=== PATIENT | female | born 1995 | race Caucasian/White ===

== ENCOUNTER 2018-10-16 17:43 | Inpatient (IN) | payer MEDICAID ==
[~2018-10-16] VITALS: Ht 162.6 cm; Wt 111.7 kg
[2018-10-16 17:53] VITALS: Ht 162.6 cm; Wt 111.7 kg
[2018-10-16 17:54] VITALS: BP 130/67; PULSE 81; RESP 20
[2018-10-16] MEDS ORDERED: LACTATED RINGER'S 1,000 ML IV PRN (18:27)
[2018-10-16] MEDS ORDERED: LIDOCAINE 1% (MPF) 30 ML INJ INJ PRN (18:30)
[2018-10-16] MEDS ORDERED: METHYLERGONOVINE 0.2 MG INJ IM PRN (18:30)
[2018-10-16] MEDS ORDERED: IBUPROFEN 600 MG TAB PO PRN (18:30)
[2018-10-16] MEDS ORDERED: OXYTOCIN 30 UNITS/LR 500 ML IV SCH ×2 (18:30)
[2018-10-16] MEDS ORDERED: MISOPROSTOL 200 MCG TAB PR PRN (18:30)
[2018-10-16] MEDS ORDERED: OXYTOCIN 30 UNITS/LR 500 ML IV PRN (18:30)
[2018-10-16] MEDS ORDERED: BUTORPHANOL 2 MG INJ IV PRN ×2 (18:30)
[2018-10-16] MEDS ORDERED: CARBOPROST 250 MCG INJ IM PRN (18:30)
--- NOTE | 2018-10-16 18:36 | TRIAGE ---
OB Triage Datetime Report Generated by CPN: 10/16/2018 18:35 Datetime: 10/16/2018 18:34 EGA: 38.0 Datetime: 10/16/2018 18:31 Time of Arrival: 10/16/2018 17:34 Arrived By: Ambulatory Arrived From: Home Chief Complaint: leaking, bleeding, uc's Movement: Present Contractions: Regular Time Contractions Began: 10/16/2018 15:00 Contractions: 5-7 Rupture of Membranes: Unsure Vaginal Discharge: Present Recent Sexual Intercouse: Denies Abdominal Trauma: Not Applicable Patient Complaints: Contractions Additional Patient Complaints: burning w urination, hx of ptl w last Time Provider Notified: 10/16/2018 17:59 Provider Notified: lizbet Initial Plan: rom +, ua
[2018-10-16] MEDS: LACTATED RINGER'S 1,000 ML IV SCH ×2 (19:18→20:34)
--- NOTE | 2018-10-16 19:19 | HP ---
Date/Time of Note Date/Time of Note DATE: 10/16/18 TIME: 19:10 OB - History Hx of Present Free Text/Dictation 23 y.0 who has Hx of PTB at 21week with one pound here at 37w5d in active labor with ? of ROM leaking fluid nitrazine neg VE 5/100/-1 c/o burning on urination, c/o leaking and vaginal bleeding Her wasinitiated on ist trimester , received mariel weekly last dose was given 4days ago GBS neg admitted for expectant management. Chief Complaint: leaking fluid and vagianl bleeding burning on urination Estimated Due Date: October 30, 2018 : 2 Para: 1 Spontaneous : 0 Therapeutic : 0 Care: Good Care Obstetrical Complications: None Medical Complications: None Past Family/Social History * Past Medical, Surgical, Family and Obstetric Histories reviewed from chart. Blood Type: O+ Rubella: immune RPR/VDRL: Negative GBS Status: Negative HBsAG: Negative OB Admission Exam Vital Signs Vital Signs Vital Signs Date Temp Pulse Resp B/P (MAP) Pulse Ox O2 O2 Flow FiO2 Time Delivery Rate 10/16/18 98.5 81 20 130/67 Room Air 17:54 (88) Physical Exam HEENT: WNL Heart: Rhythm Normal Lungs: Clear, Equal Abdomen: WNL Extremities: Normal Reflexes: Normal Cervical Dilatation: 5cm Effacement: 100% Station: -1 Membranes: Ruptured Amniotic Fluid: Clear Heart Rate: 150's Accelerations: Accelerations Present Decelerations: No Decelerations Varibility: Moderate Contractions on Admission: < 5 Minutes Apart Intensity: Moderate OB Assessment/Plan Reason for admission: active labor Other Assessment: IUP 37w5d Plan: Expectant Management HI NASCIMENTO MD October 16, 2018 19:19
--- NOTE | 2018-10-16 20:35 | PREAC ---
Date/Time of Note Date/Time of Note DATE: 10/16/18 TIME: 20:34 Anesthesia Eval and Record Evaluation Time Pre-Procedure Interview DATE: 10/16/18 TIME: 20:34 Age 23 Sex female NPO: 8 hrs Preoperative diagnosis intrauterine Planned procedure labor epidural Past Medical History Past Medical History: Includes GI: Obesity : : (2), Para: (1) Surgery & Anesthesia Issues No known issue Meds Anticoagulation: No Beta Magda within 24 hr: No Reason Beta Magda not given: Pt. not on B-Magda Current Medications Lactated Ringer's 1,000 ml @ 125 mls/hr Q8H IV Last administered on 10/16/18at 19:18; Admin Dose 125 MLS/HR; Start 10/16/18 at 18:27 Butorphanol Tartrate (Stadol) 1 mg Q2H PRN IV .PAIN SCALE 1-5; Start 10/16/18 at 18:30 Butorphanol Tartrate (Stadol) 2 mg Q2H PRN IV .PAIN SCALE 6-10; Start 10/16/18 at 18:30 Lidocaine (Xylocaine 1% (Mpf)) 30 ml ONCE PRN INJ .EPISIOTOMY; Start 10/16/18 at 18:30 Oxytocin/Lactated Ringer's 500 ml @ 500 mls/hr ONCE POST IV ; Start 10/16/18 at 18:30 Oxytocin/Lactated Ringer's 500 ml @ 125 mls/hr POST IV ; Start 10/16/18 at 18:30 Ibuprofen (Motrin) 600 mg ONCE PRN PO .PAIN 1-5; Start 10/16/18 at 18:30 Lactated Ringer's 1,000 ml @ 2,000 mls/hr Q30M PRN IV .ANESTHESIA; Start 10/16/18 at 18:27 Oxytocin/Lactated Ringer's 500 ml @ 0 mls/hr ONCE PRN IV .VAGINAL BLEEDING; Start 10/16/18 at 18:30 Methylergonovine Maleate (Methergine) 0.2 mg ONCE PRN IM .VAGINAL BLEEDING; Start 10/16/18 at 18:30 Carboprost Tromethamine (Hemabate) 250 mcg ONCE PRN IM .VAGINAL BLEEDING; Start 10/16/18 at 18:30 Misoprostol (Cytotec) 1,000 mcg ONCE PRN GA .VAGINAL BLEEDING; Start 10/16/18 at 18:30 Cefazolin Sodium/ Dextrose 50 ml @ 100 mls/hr Q8H IVPB ; Start 10/16/18 at 20:30 Meds reviewed: Yes Allergies Coded Allergies: No Known Allergy (Unverified , 10/16/18) Allergies Reviewed: Yes Labs/Studies Labs Reviewed: Reviewed by anesthesiologist Result Diagram: 10/16/18 1800 Laboratory Tests 10/16/18 18:00 Blood Bank Test 10/16/18 18:00 Antibody Screen NEGATIVE Blood Type A POSITIVE Rh Immune Globulin Candidate NO test: N/A Pre-procedure Exam Last vitals Vital Signs Date Temp Pulse Resp B/P (MAP) Pulse Ox O2 O2 Flow FiO2 Time Delivery Rate 10/16/18 98.5 81 20 130/67 Room Air 17:54 (88) Airway: Adequate mouth opening, Adequate thyromental dist Mallampati: Mallampati II Teeth: Normal Lung: Normal Heart: Normal ASA Physical Status ASA physical status: 2 Emergency: None Planned Anesthetic Neuraxial: Epidural Planned Pain Management Epidural, Parenteral pain med Pre-operative Attestations Prior to commencing anesthesia and surgery, the patient was re-evaluated, there was verification of: *The patient's identity *The results of appropriate recent lab work and preoperative vital signs *The above evaluation not changing prior to induction *Anesthetic plan, risk benefits, alternative and complications discussed with patient/family; questions answered; patient/family understands, accepts and wishes to proceed. ALIA REBOLLAR MD October 16, 2018 20:35
[2018-10-16] MEDS: CEFAZOLIN 2 GM/50 ML (PMX) 50 ML IVPB SCH (20:40)
[2018-10-16] MEDS ORDERED: NALOXONE (0.4 MG/ML) INJ IV PRN (21:00)
[2018-10-16] MEDS ORDERED: FENTAnyl 2MCG/ML-ROPIV 0.2% 100 ML BAG EPI SCH (21:00)
[2018-10-16] MEDS ORDERED: ONDANSETRON 4 MG INJ IV PRN (21:00)
[2018-10-16] MEDS ORDERED: DIPHENHYDRAMINE 50 MG INJ IV PRN (21:00)
--- NOTE | 2018-10-16 21:34 | PAC ---
Date/Time of Note Date/Time of Note DATE: 10/16/18 TIME: 21:33 Post-Anesthesia Notes Post-Anesthesia Note Last documented vital signs Vital Signs Date Temp Pulse Resp B/P (MAP) Pulse Ox O2 O2 Flow FiO2 Time Delivery Rate 10/16/18 98.5 81 20 130/67 Room Air 17:54 (88) Activity: WNL Respiratory function: WNL Cardiovascular function: WNL Mental status: Baseline Pain reasonably controlled: Yes Hydration appropriate: Yes Nausea/Vomiting absent: Yes Comments BP: 118/65 HR: 99 RR: 17 T: 98 SaO2: 99% ALIA REBOLLAR MD October 16, 2018 21:34
[2018-10-17] MEDS ORDERED: ACETAMINOPHEN 325 MG TAB PO ONE
[2018-10-17] MEDS ORDERED: OXYTOCIN 30 UNITS/LR 500 ML IV SCH ×2 (03:00→12:08)
[2018-10-17] MEDS: CEFAZOLIN 2 GM/50 ML (PMX) 50 ML IVPB SCH (04:29)
[2018-10-17] MEDS: LACTATED RINGER'S 1,000 ML IV SCH (06:37)
--- NOTE | 2018-10-17 09:41 | LDN ---
Date/Time of Note Date/Time of Note DATE: 10/17/18 TIME: 09:40 Delivery Summary Weeks of Gestation 40 Placenta Delivered: Spontaneously Meconium: none Episiotomy: No Laceration repair: 1st degree vaginal laceration repair with 3-0 chromic Anesthesia type: Epidural Estimated blood loss: 300 Sponge & Needle done & correct: Yes All needle counts correct: Yes Any foreign bodies felt in the: No Infant Delivery Information Sex Infant Sex: male Apgars 1 Minute: 9 5 Minute: 9 Suctioning Nose & mouth suctioned at cl: No Delee suction performed: No Umbilical Cord Umbilical cord with: 3 Vessels Cord presentations: no nuchal cord Cord Blood was obtained: Yes JAVIER DE LEÓN MD October 17, 2018 09:41
[2018-10-17 12:04] VITALS: BP 121/51; PULSE 67; RESP 20
[2018-10-17] MEDS ORDERED: OXYTOCIN 30 UNITS/LR 500 ML IV PRN (12:30)
[2018-10-17] MEDS ORDERED: WITCH HAZEL/GLYCERIN PAD PR PRN (12:30)
[2018-10-17] MEDS ORDERED: DIPHENHYDRAMINE 25 MG CAP PO PRN (12:30)
[2018-10-17] MEDS ORDERED: MISOPROSTOL 200 MCG TAB PR PRN (12:30)
[2018-10-17] MEDS ORDERED: OXYCODONE/ASPIRIN (4.88/325) TAB PO PRN ×2 (12:30)
[2018-10-17] MEDS ORDERED: BENZOCAINE 20% 56 ML SPRAY TOP PRN (12:30)
[2018-10-17] MEDS ORDERED: NACL 0.9% 3 ML SYG IV SCH (12:30)
[2018-10-17] MEDS ORDERED: METHYLERGONOVINE 0.2 MG INJ IM PRN (12:30)
[2018-10-17] MEDS ORDERED: LANOLIN HPA 1 PKT TOP PRN (12:30)
[2018-10-17] MEDS ORDERED: CARBOPROST 250 MCG INJ IM PRN (12:30)
[2018-10-17] MEDS ORDERED: ONDANSETRON 4 MG INJ IV PRN (12:30)
[2018-10-17 16:23] VITALS: BP 119/68; PULSE 76; RESP 18
[2018-10-17] MEDS: IBUPROFEN 600 MG TAB PO SCH (17:42)
[2018-10-17 20:00] VITALS: BP 104/55; PULSE 92; RESP 18
[2018-10-17] MEDS: SENNA/DOCUSATE NA (8.6MG/50MG) TAB PO SCH (20:16)
[2018-10-18] MEDS: IBUPROFEN 600 MG TAB PO SCH ×4 (01:24→17:57)
[2018-10-18 04:00] VITALS: BP 118/64; PULSE 71; RESP 18
[2018-10-18 08:00] VITALS: BP 107/71; PULSE 80; RESP 20
[2018-10-18] MEDS: SENNA/DOCUSATE NA (8.6MG/50MG) TAB PO SCH ×2 (09:42→20:37)
[2018-10-18 16:00] VITALS: BP 108/58; PULSE 85; RESP 16
--- NOTE | 2018-10-18 18:05 | PD.PPDC ---
PIECE MARKER SMALL ARMS Discharge Instruction Condition Buaft6Ke Patient Condition: Rqqey2x Good Diet Alvvq6Qs Diet: Mvytp3n Resume Regular Diet Activity/Restrictions [id number] Activity: Veobv2p Normal Activity May Shower Mziyo2Zf Restrictions: Lwtrh2m No Exercising No Lifting No Driving No Sexual Activity Nothing in the Vagina No [place] No Tampons, douche Follow-up Follow-up with Physician: 3, Week/Weeks Return to clinic for Nzqqu5Nc INCINERATOR ATTENDANT Instructions: Pwoyo3s Fever greater than 101 Chills Worsening abdominal pain Excessive Vaginal Bleeding More than 2 pads per hour Unable to tolerate diet Htpdp5Eb OB Instructions: Mmmqq7v Breast Tenderness Depression Blurried Vision Headache [id number] Surgical Instructions: Heyoq9e Incisional Drainage Incisional Redness JAVIER DE LEÓN MD October 18, 2018 18:05
--- NOTE | 2018-10-18 18:07 | DS ---
Date/Time of Note Date/Time of Note DATE: 10/18/18 TIME: 18:06 Obstetrical Discharge Record Final Diagnosis Final Diagnosis: Term delivered Vaginal Delivery Obstetrical Delivery: Spontaneous, Laceration, Repaired Condition on Discharge Physical Assessment Last Vitals: stable afebrile Voiding: Yes Bowel Movement: Yes Breast: Soft, non-tender, Filling Fundus: Firm Abdomen and Incision: soft nt Calf Tenderness: No Patient Condition: Fair JAVIER DE LEÓN MD October 18, 2018 18:07
[2018-10-18 20:25] VITALS: BP 103/49; PULSE 71; RESP 16
[2018-10-19] MEDS: IBUPROFEN 600 MG TAB PO SCH ×3 (00:25→12:38)
[2018-10-19 04:00] VITALS: BP 101/53; PULSE 78; RESP 17
[2018-10-19 08:10] VITALS: BP 115/68; PULSE 70; RESP 17
[2018-10-19] MEDS ORDERED: MEASLES,MUMPS,RUBELLA VACCINE INJ SC* ONE (09:00)
[2018-10-19] MEDS: SENNA/DOCUSATE NA (8.6MG/50MG) TAB PO SCH (09:01)
--- NOTE | 2018-10-20 14:35 | DELSUM ---
Delivery Summary A-C Datetime Report Generated by CPN: 10/20/2018 14:35 DELIVERY PERSONNEL Handbag Operator: Ben Hopkins MATERNAL INFORMATION Delivery Anesthesia: Epidural Medications in Delivery: PITOCIN Delivery QBL (ml): 300 Placenta Cultured: No Maternal Complications: None LABOR SUMMARY EDC: 10/30/2018 00:00 No. Babies in Womb: 1 Attempted: No Labor Anesthesia: Epidural LABOR INFORMATION Reason for Induction: Not Applicable Onset of Labor: 10/16/2018 19:00 Complete Dilatation: 10/17/2018 08:45 Oxytocin: Augmentation Group B Beta Strep: Negative Antibiotics # of Doses: 2 Antibiotics Time of Last Dose: 10/17/2018 04:29 Steroids Given: None Reason Steroids Not Administered: Not Applicable MEMBRANES Membranes Rupture Method: Artificial Rupture of Membranes: 10/17/2018 08:44 Length of Rupture (hr): 0.53 Amniotic Fluid Color: Clear Amniotic Fluid Amount: Moderate Amniotic Fluid Odor: None STAGES OF LABOR Stage 1 hr: 13 Stage 1 min: 45 Stage 2 hr: 0 Stage 2 min: 31 Stage 3 hr: 0 Stage 3 min: 2 Total Time in Labor hr: 14 Total Time in Labor min: 18 VAGINAL DELIVERY Episiotomy: None Laceration Extension: First Degree Laceration Type: Perineal Laceration Repair: Yes Initial Vag Sponge Count: 10+10 Final Vag Sponge Count: 20 Initial Vag Sharps Count: 1+2 Final Vag Sharps Count: 3 Sponge Count Correct: Yes; Vaginal Sweep Performed BABY A INFORMATION Infant Delivery Date/Time: 10/17/2018 09:16 Method of Delivery: Vaginal Born in Route : No : N/A Forceps: N/A Vacuum Extraction: N/A Shoulder Dystocia : N/A SHOULDER DYSTOCIA BABY A Infant Delivery Date/Time: 10/17/2018 09:16 PRESENTATION/POSITION BABY A Presentation: Cephalic Cephalic Presentation: Vertex Vertex Position: Left Occipital Anterior Breech Presentation: N/A PLACENTA INFORMATION BABY A Placenta Delivery Time : 10/17/2018 09:18 Placenta Method of Delivery: Spontaneous Placenta Status: Delivered SCORES BABY A Heart Rate 1 min: >100 bpm Resp Effort 1 min: Good Cry Reflex Irritability 1 min: Cough/Sneeze/Pulls Away Muscle Tone 1 min: Active Motion Color 1 min: Body [place], Extremit Blue Resuscitation Effort 1 min: Tactile Stimulation SCORE 1 MIN: 9 Heart Rate 5 min: >100 bpm Resp Effort 5 min: Good Cry Reflex Irritability 5 min: Cough/Sneeze/Pulls Away Muscle Tone 5 min: Active Motion Color 5 min: Body [place], Extremit Blue Resuscitation Effort 5 min: Tactile Stimulation SCORE 5 MIN: 9 INFANT INFORMATION BABY A Gestational Age at Delivery: 38.1 Gestational Status: Early Term- 37- 38.6 Weeks Outcome : Liveborn Infant Condition : Stable Infant Sex: Male IDENTIFICATION/MEDS BABY A ID Band Number: [id number] ID Band Location: Right Leg; Left Arm Sensor Applied: Yes Sensor Number: [id number] Sensor Location : Cord Clamp Vitamin K Given : Not Given Erythromycin Given: Not Given WEIGHT/LENGTH BABY A Birthweight (gm): 3290 Infant Weight (lb): 7 Weight (oz): 4 Infant Length (in): 20.50 Infant Length (cm): 52.07 CORD INFORMATION BABY A No. Cord Vessels: 3 Nuchal Cord : N/A Cord Blood Taken: Yes Infant Suction: Nose ASSESSMENT BABY A Complications: None Physical Findings at Delivery: Within Normal Limits Infant Respirations: Appears Normal Long Wall Mining Machine Tender/ALS Called : Yes Care By: RT ARGENIS/BEN RN Transferred To: Remains with Mother
== END 2018-10-19 13:40 | disposition home or self-care (01) | DRG 807 ==
LOC: OBT 17:43 → L-D 17:44 → OBT 18:30 → PP1 10-17 11:53
PROVIDERS: ADMIT Obstetrics & Gynecology; ATTEND Obstetrics & Gynecology
PROC: 10E0XZZ Delivery of Products of Conception, External Approach (ICD-10-PCS; principal; 2018-10-17)
PROC: 0HQ9XZZ Repair Perineum Skin, External Approach (ICD-10-PCS; 2018-10-17)
DX: O70.0 First degree perineal laceration during delivery (principal); Z37.0 Single live birth; Z3A.37 37 weeks gestation of pregnancy
CPT/HCPCS: 62322; 76815; 76818; 81001; 84112; 85025; 85048; 85610; 85730; 86592; 86850; 86900; 86901; 87340; 99464; G0463; J0690; J2210; J2590; J3010; J7120

== ENCOUNTER 2018-11-14 16:09 | Emergency (ER) | payer MEDICAID ==
[~2018-11-14] VITALS: Ht 165.1 cm; Wt 103.6 kg
[2018-11-14 16:22] VITALS: Ht 165.1 cm; Wt 103.6 kg
[2018-11-14] MEDS ORDERED: METR500T PO (20:04)
[2018-11-14 20:21] VITALS: BP 101/50; PULSE 53; RESP 18
--- NOTE | 2018-11-14 21:31 | ERD ---
ER Documentation Chief Complaint Chief Complaint painful urination & vaginal bleeding vag delivery 28 days ago HPI History of Present Illness: 23-year-old female who denies a past medical history coming in today due to painful urination and malodorous vaginal bleeding that started 1 week ago. Patient reports using approximately 5 pads per day. Patient had a vaginal delivery on 10/17/2018 in which she experienced no complications but did have a tear that required sutures. Patient denies any other associated symptoms. Patient denies burning with urination, frequency, urgency. Patient denies fever, chills. Patient present with significant other as well as infant child. At home pharmacological/nonpharmacological treatment for symptoms: Denies Denies social concerns; Denies recent foreign travel ROS All systems reviewed and are negative except as per history of present illness. Medications Home Meds Active Scripts Metronidazole* (Flagyl*) 500 Mg Tablet, 500 MG PO BID for BACTERIAL VAGINOSIS/VAG INFECT for 7 Days, TAB Prov:DALE TERRAZAS V ENGINEERING TECHNICAL SPECIALIST 11/14/18 Allergies Allergies: Coded Allergies: No Known Allergy (Unverified , 10/16/18) PMhx/Soc History of Surgery: No Anesthesia Reaction: No Hx Neurological Disorder: No Hx Respiratory Disorders: No Hx Cardiac Disorders: No Hx Psychiatric Problems: No Hx Miscellaneous Medical Probl: No Hx Alcohol Use: No Hx Substance Use: No Hx Tobacco Use: No Smoking Status: Never smoker FmHx Family History: No diabetes, No coronary disease Physical Exam Vitals Vital Signs Date Temp Pulse Resp B/P (MAP) Pulse Ox O2 O2 Flow FiO2 Time Delivery Rate 11/14/18 98.1 53 18 101/50 98 20:21 (67) 11/14/18 98.6 67 18 119/60 98 16:22 (79) Physical Exam Const: No acute distress Head: Atraumatic Eyes: Normal Conjunctiva ENT: Normal External Ears, Nose and Mouth. Neck: Full range of motion. No meningismus. Resp: Clear to auscultation bilaterally Cardio: Regular rate and rhythm, no murmurs Abd: Soft, non tender, non distended. Normal bowel sounds. Obese. Skin: No petechiae or rashes Back: No midline or flank tenderness Ext: No cyanosis, or edema Neur: Awake and alert Psych: Normal Mood and Affect My vaginal exam: External genitalia within normal limits, no severe hemorrhaging noted. Speculum exam deferred due to patient having recent vaginal delivery less than 4 weeks ago. Wet prep collected. Results 24 hrs Laboratory Tests Test 11/14/18 18:10 Urine Color STRAW Urine Clarity CLEAR Urine pH 5.0 Urine Specific [place] 1.009 Urine Ketones NEGATIVE mg/dL Urine Nitrite NEGATIVE mg/dL Urine Bilirubin NEGATIVE mg/dL Urine Urobilinogen NEGATIVE mg/dL Urine Leukocyte Esterase NEGATIVE Kkio/ul Urine Microscopic RBC 0 /HPF Urine Microscopic WBC 0 /HPF Urine Hemoglobin 2+ mg/dL Urine Glucose NEGATIVE mg/dL Urine Total Protein NEGATIVE mg/dl Procedures/MDM ED course includes a thorough examination and history. Medications: Imaging: No ultrasound at this time, discussed with ED Dr. Barroso arriving in and agrees with plan of care to defer ultrasound Labs: Urinalysis, wet prep Low suspicion for life-threatening medical emergency. Low suspicion for IMPLEMENTATION ARCHITECT emergency requires hospitalization or immediate surgical intervention. Otherwise healthy patient presenting with constellation of symptoms likely representing vaginal bleeding after vaginal delivery, bacterial vaginosis as characterized by history, physical exam findings, lab findings. Urogenital wet mount showing RBCs, WBCs, positive clue cells, positive bacteria. Patient reassessment 180: Patient hemodynamically stable. No respiratory distress, otherwise relatively well appearing and nontoxic. Disposition given. Patient educated on diagnoses, prescriptions, follow-up care, return precautions. Strict return precautions given for worsening condition; questions answered discharge. Patient verbalizes understanding of discharge instructions as well as plan of care, follow-up, return precautions. Disposition for discharge with followup in 2 days with PCP/clinic. Departure Diagnosis: Primary Impression: Bacterial vaginosis Additional Impression: Vaginal bleeding Condition: Stable Patient Instructions: Vaginal : Your Experience, Vaginal Infection: Bacterial Vaginosis Ref[facility]: [facility] Usted se olsen hecho un examen mdico de control que le indica que no est en maurilio condicin que requiera tratamiento urgente en el Departamento de Emergencia. Un estudio ms profundo y el tratamiento de [place] condicin pueden esperar sin ningn riesgo hasta que usted sea atendida/o en el consultorio de [place]by mdico o maurilio clnica. Es responsabilidad suya arreglar maurilio yeimy para el seguimiento del noel. MANEJO DE CONDICIONES NO URGENTES EN EL FUTURO 1) Si usted tiene un mdico de atencin primaria: Usted debera llamar a [place] mdico de atencin primaria antes de venir al departamento de emergencia. Despus de las horas de consultorio, [place]by doctor o [place]oughby asociado/a est disponible por telfono. El mdico o enfermero de jc en el servicio telefnico puede asesorarle por sravani medio para atender el problema, o noel contrario se puede programar maurilio yeimy. 2) Si usted no tiene un mdico de atencin primaria: Llame al mdico o clnica de referencia que aparece abajo alfredo las horas de consultorio para hacer maurilio yeimy para que le vean. CLINICAS: [facility] [phone] [address] [place] [place] [facility] [facility] [phone] [address] [facility]. [facility] [phone] [address] [facility]. [facility] [phone] [address] [facility]. [facility] [phone] [address] [facility]. [phone] [facility] [facility]. [facility] () Usted se olsen hecho un examen mdico de control que le indica que no est en maurilio condicin que requiera tratamiento urgente en el Departamento de Emergencia. Un estudio ms profundo y el tratamiento de [place] condicin pueden esperar sin ningn riesgo hasta que usted sea atendida/o en el consultorio de [place]by mdico o maurilio clnica. Es responsabilidad suya arreglar maurilio yeimy para el seguimiento del noel. MANEJO DE CONDICIONES NO URGENTES EN EL FUTURO 1) Si usted tiene un mdico de atencin primaria: Usted debera llamar a [place] mdico de atencin primaria antes de venir al departamento de emergencia. Despus de las horas de consultorio, [place] doctor o [place]oughby asociado/a est disponible por telfono. El mdico o enfermero de jc en el servicio telefnico puede asesorarle por sravani medio para atender el problema, o noel contrario se puede programar maurilio yeimy. 2) Si usted no tiene un mdico de atencin primaria: Llame al mdico o condado institucions de referencia que aparece abajo alfredo las horas de consultorio para hacer maurilio yeimy para que le vean. SI USTED NO PUEDE PAGAR PARA JOHANN UN MEDICO puede ir a: [facility] [address] [place] [address] [facility] [address] [place] [address] [facility] [address] [place] [address] [facility] [address] [place], [place] [phone] IMPLEMENTATION ARCHITECT [place] [address] [facility] [address] [place], [place] [phone] OFFICE FAX DARLINE ANDREW [address] [place], [place] [id number] [place] [address] [place], [place] [phone] LAVELLE JOLLEY [address] [facility], [address] [phone] MIA GAGNON [address] [place], [place] [phone] [facility] [address] [place], [place] [phone] [address] [facility] [place] [id number] - DR FIERRO, BERE [address], [facility] [address] [address] ESPA[address]A, MARGUER[place] [address] [facility]. [address], [facility] [address] [address] AN, [place] [address] [place], [place] [phone] Additional Instructions: Muchas neo por permitirnos participar en willoughby cuidado. [place] desi y seguridad es nuestra principal prioridad en [facility]. Es importante leer todas las instrucciones de get y la educacin que se proporcionan en willoughby paquete de get. Llame a willoughby mdico de atencin primaria MAANA para maurilio yeimy alfredo los prximos 2 a 4 doe y lleve toda la informacin y los medicamentos recetados. Llene las recetas y siga exactamente las instrucciones de la etiqueta. -Metronidazol ES un antibitico; tome sunny medicamento todos los doe ruth se in dica en willoughby receta. Debe completar todo el curso de tratamiento que figura en willoughby receta. Sam [place] es muy importante porque se necesitan varios doe para eliminar las bacterias que causan la infeccin. Si los sntomas empeoran y willoughby proveedor no est disponible, regrese inmediatamente al Departamento de Emergencias. --- Thank you very much for allowing us to participate in your care. Your health and safety is our top priority at [facility]. It is important to read all discharge instructions and education provided in your discharge packet. Call your primary care doctor TOMORROW for an appointment during the next 2-4 da ys and bring all the information and medications prescribed. Have prescriptions filled and follow precisely the directions on the label. -Metronidazole IS an antibiotic; take this medication every day as listed on your prescription. You must complete the entire course of treatment that is listed on your prescription this is very important because it takes a certain number of days to kill the bacteria that is causing the infection. If the symptoms get worse and your provider is unavailable, return to the Emergency Department immediately. DALE TERRAZAS NP Nov 14, 2018 21:31
== END 2018-11-14 20:21 | disposition home or self-care (01) ==
LOC: FTE 16:09
DX: O86.13 Vaginitis following delivery (principal); B96.89 Other specified bacterial agents as the cause of diseases classified elsewhere
CPT/HCPCS: 81001; 87210; 99283